=== PATIENT | female | born 2000 | race African-American/Black ===

== ENCOUNTER 2020-01-05 05:05 | Inpatient (IN) ==
[2020-01-05] MEDS ORDERED: BUTORPHANOL 2 MG/ML VIAL IV PRN (05:27)
[2020-01-05] MEDS ORDERED: ONDANSETRON 4 MG/2 ML VIAL IV PRN ×2 (05:27→15:38)
[2020-01-05] MEDS ORDERED: MEPERIDINE 50 MG/1 ML VIAL IV PRN (05:27)
[2020-01-05] MEDS ORDERED: FAMOTIDINE 20 MG/2 ML VIAL IV PRN (05:29)
[2020-01-05] MEDS ORDERED: CITRIC ACID/SODIUM CITRATE 30 ML UDCUP PO PRN (05:30)
[2020-01-05] MEDS ORDERED: fentaNYL 2 MCG/ROPIV 0.2% EPID 100 ML EPIDURAL SCH (05:30)
[2020-01-05] MEDS ORDERED: ePHEDrine 50 MG/ML VIAL ONE (05:45)
[2020-01-05] MEDS: LACTATED RINGERS 1,000 ML IV SCH ×2 (05:55→09:35)
[2020-01-05 06:02] LABS: Basophils % 0.3 % (0.0-0.8); Eosinophils % 0.1 % (0.00-10.9); Hematocrit 29.5 VOL% (35.7-47.0); Hemoglobin 9.7 GM/DL (12.0-16.0); Immature Granulocytes % 0.6 %; Immature Granulocytes Absolute 0.04 #; Lymphocytes # 2.1 10*3/uL (1.4-4.0); Mean Corpuscular HGB Conc 32.9 GM/DL (32-36); Mean Platelet Volume 12.1 FL (9.6-12.0); Monocytes % 7.3 % (1.7-12.7); Neutrophils % 62.7 % (38.7-73.9); Platelet Count 163 T/CUMM (130-400); Red Blood Count 3.51 MC/CUMM (3.8-5.5); Red Cell Distribution Width 12.7 % (9.3-17.3); White Blood Count 7.3 T/CUMM (4-12)
[2020-01-05 06:15] LABS: Albumin 2.3 G/DL (3.4-5.0); Bilirubin,Total 0.4 MG/DL (0.2-1.0); Calcium 8.6 MG/DL (8.5-10.1); Osmolality,Calculated 271.7 MOS/KG (273-304); Total Protein 6.4 G/DL (6.4-8.3)
[2020-01-05 07:55] LABS: Platelet Estimate Normal; Tear Drop Cells Few
[2020-01-05 08:23] LABS: Bacteria,Urine Occasional /HPF (Few); Bilirubin,Urine Negative (Negative); Blood, Urine Negative (Negative); Glucose,Urine (UA) Negative (Negative); Ketones,Urine Negative (Negative); Mucus,Urine Occasional /LPF (Occasional); Nitrite,Urine Negative (Negative); Protein,Urine 100 MG/DL; RBC,Urine 1 /HPF (0-4); Squamous Epithelial Cell,Urine Occasional /HPF (0-10); Urine Appearance CLEAR (Clear); Urine Color Yellow (Yellow); Urine Specific Gravity 1.013 (1.001-1.035); WBC,Urine 1 /HPF (0-6)
[2020-01-05] MEDS ORDERED: ePHEDrine 50 MG/ML VIAL IV PRN (08:23)
[2020-01-05] MEDS ORDERED: OXYTOCIN/LR 20 UNIT/1,000 ML BAG IV SCH (08:30)
[2020-01-05] MEDS ORDERED: miSOPROStoL 200 MCG TABLET ONE (12:21)
[2020-01-05] MEDS ORDERED: CARBOPROST TROMETHAMINE 250 MCG/ML AMP IM ONE (12:22)
[2020-01-05] MEDS ORDERED: METHYLERGONOVINE 0.2 MG/1 ML AMP ONE (12:22)
[2020-01-05 13:45] LABS: Cord Venous Blood HCO3 21.1 MMOL/L; Cord Venous Blood PCO2 50.6 MMHG; Cord Venous Blood PO2 36.1 MMHG
[2020-01-05] MEDS ORDERED: WITCH HAZEL PADS 100/JAR TOP PRN (15:38)
[2020-01-05] MEDS ORDERED: DIPH/TET/ACEL PERT BOOSTER VACCINE 0.5 ML VIAL IM ONE (15:38)
[2020-01-05] MEDS ORDERED: BISACODYL 10 MG SUPP RECTAL PRN (15:38)
[2020-01-05] MEDS ORDERED: oxyCODONE/ACETAMINOPHEN 5-325 MG TABLET PO PRN (15:38)
[2020-01-05] MEDS ORDERED: OXYTOCIN/LR 20 UNIT/1,000 ML BAG IV ONE (15:38)
[2020-01-05] MEDS ORDERED: MEASLES/MUMPS/RUBELLA VACCINE 0.5 ML VIAL SUBCUT ONE (15:38)
[2020-01-05] MEDS ORDERED: LANOLIN 50% CREAM 0.3 OZ TUBE TOP PRN (15:38)
[2020-01-05] MEDS ORDERED: RHO(D) IMMUNE GLOBULIN 300 MCG SYRINGE IM ONE (15:38)
[2020-01-05] MEDS ORDERED: ACETAMINOPHEN 325 MG TABLET PO PRN (15:38)
[2020-01-05] MEDS ORDERED: BENZOCAINE 20%/MENTHOL 0.5% SPRAY 56 GM CAN TOP PRN (15:38)
[2020-01-05] MEDS ORDERED: HYDROCORTISONE 2.5% RECTAL CREAM 30 GM TUBE TOP PRN (15:38)
[2020-01-05] MEDS: IBUPROFEN 800 MG TABLET PO PRN ×2 (15:49→21:34)
[2020-01-05] MEDS: DOCUSATE SODIUM 100 MG CAPSULE PO SCH (20:49)
[2020-01-06] MEDS: oxyCODONE/ACETAMINOPHEN 5-325 MG TABLET PO PRN ×2 (05:00→19:19)
[2020-01-06 06:47] LABS: Basophils % 0.2 % (0.0-0.8); Eosinophils % 0.3 % (0.00-10.9); Hematocrit 27.5 VOL% (35.7-47.0); Immature Granulocytes % 0.7 %; Immature Granulocytes Absolute 0.08 #; Lymphocytes # 1.7 10*3/uL (1.4-4.0); Lymphocytes % 15.2 % (21.3-54.2); Mean Corpuscular HGB Conc 32.7 GM/DL (32-36); Mean Corpuscular Volume 85.7 FL (87-102); Mean Platelet Volume 12.5 FL (9.6-12.0); Monocytes % 7.8 % (1.7-12.7); Neutrophils % 75.8 % (38.7-73.9); Platelet Count 153 T/CUMM (130-400); Red Blood Count 3.21 MC/CUMM (3.8-5.5); Red Cell Distribution Width 12.5 % (9.3-17.3); White Blood Count 11.4 T/CUMM (4-12)
[2020-01-06 08:26] LABS: Platelet Estimate Normal
[2020-01-06 08:27] LABS: Anisocytosis 1+
[2020-01-06] MEDS: DOCUSATE SODIUM 100 MG CAPSULE PO SCH ×2 (08:49→21:15)
[2020-01-06] MEDS: IBUPROFEN 800 MG TABLET PO PRN ×2 (09:59→20:42)
[2020-01-07] MEDS: oxyCODONE/ACETAMINOPHEN 5-325 MG TABLET PO PRN ×2 (01:18→07:30)
[2020-01-07] MEDS: IBUPROFEN 800 MG TABLET PO PRN (06:15)
[2020-01-07] MEDS: DOCUSATE SODIUM 100 MG CAPSULE PO SCH (07:30)
[2020-01-07 08:42] VITALS: BP 112/73
== END 2020-01-07 12:10 | disposition home or self-care (01) | DRG 560 ==
LOC: N.LDOUT 05:05 → N.LD 05:07 → N.OB 17:08
PROVIDERS: ADMIT Obstetrics & Gynecology; ATTEND Obstetrics & Gynecology